=== PATIENT | male | born 1980 | race Two or more races ===

== ENCOUNTER 2025-03-03 16:28 | Emergency (ER) | payer OTHER ==
[~2025-03-03] VITALS: Ht 188 cm; Wt 79.4 kg
[2025-03-03 17:06] VITALS: BP 145/91; TEMP 98.1
[2025-03-03] MEDS ORDERED: DOXY-326 PO (17:35)
[2025-03-03] MEDS ORDERED: LIDOCAINE 1% INJ 50 ML MDV IJ ONE (17:36)
[2025-03-03] MEDS ORDERED: CEFTRIAXONE 1 G VIAL ONE (17:37)
[2025-03-03] MEDS ORDERED: METRONIDAZOLE 500 MG TABLET ONE (17:37)
[2025-03-03] MEDS: CEFTRIAXONE 1 G VIAL IM ONE (17:45)
[2025-03-03] MEDS: METRONIDAZOLE 500 MG TABLET PO ONE (17:45)
[2025-03-03 17:52] VITALS: O2SAT 99
[2025-03-03 18:23] LABS: APPEARANCE,URINE SLIGHTLY CLOUDY (CLEAR); BILIRUBIN,URINE NEGATIVE (NEGATIVE); BLOOD, URINE NEGATIVE Ery/uL (NEGATIVE); COLOR,URINE YELLOW (YELLOW); KETONES,URINE NEGATIVE (NEGATIVE); LEUKOCYTE ESTERASE ,URINE NEGATIVE (NEGATIVE); NITRITE, URINE NEGATIVE (NEGATIVE); PROTEIN,URINE TRACE mg/dl (NEGATIVE); UGLUCOSE NEGATIVE (NEGATIVE)
[2025-03-03 18:26] LABS: RBC,URINE 0-2 /HPF (0-2); WBC,URINE 0-2 /HPF (0-3)
[2025-03-03 18:27] LABS: ADD URINE CULTURE NO; BACTERIA,URINE None seen /HPF (None Seen); MUCUS,URINE Few /LPF (None Seen); SPERM,URINE Few /HPF (None Seen); SQUAMOUS EPITHELIAL CELL,UR 0-2 /HPF (None Seen)
[2025-03-04 10:07] LABS: RAPID PLASMA REAGIN QUAL. Non Reactive (Non Reactive)
[2025-03-04 23:32] LABS: HIV-1 p24 ANTIGEN NON REACTIVE (NONREACTIVE); HIV-1/2 ANTIBODY NON REACTIVE (NONREACTIVE)
[2025-03-05 23:09] LABS: CHLAMYDIA TRACHOMATIS NAA Negative (Negative); NEISSERIA GONORRHOEAE NAA Negative (Negative)
== END 2025-03-03 17:53 | disposition home or self-care (01) ==
LOC: ER 16:36
DX: R30.0 Dysuria (principal); Z20.2 Contact with and (suspected) exposure to infections with a predominantly sexual mode of transmission; F17.200 Nicotine dependence, unspecified, uncomplicated
CPT/HCPCS: 99283; 86593; 86592; 96372; 87086; 81001; 36415; 87806; 87491; 87591; J3490; J0696